=== PATIENT | female | born 1960 | race Caucasian/White ===

== ENCOUNTER 2019-04-12 09:16 | Day surgery (SDC) | payer OTHER ==
[~2019-04-12] VITALS: Ht 162.6 cm; Wt 80.7 kg
[2019-04-12] MEDS ORDERED: MIDAZOLAM 2 MG/2 ML VIAL ONE (10:47)
[2019-04-12] MEDS ORDERED: fentaNYL 0.05 MG/ML VIAL ONE (10:48)
[2019-04-12] MEDS ORDERED: LIDOCAINE 2% 100 MG/5 ML UJET TP ONE (10:48)
[2019-04-12] MEDS ORDERED: MIDAZOLAM 2 MG/2 ML VIAL IVP ONE (10:55)
[2019-04-12] MEDS ORDERED: fentaNYL 0.05 MG/ML VIAL IVP ONE (10:57)
== END 2019-04-12 12:00 | disposition home or self-care (01) ==
LOC: MDS 09:16 → MMU 09:16 → MDS 12:00
PROVIDERS: ATTEND Internal Medicine Gastroenterology
DX: Z12.11 Encounter for screening for malignant neoplasm of colon (principal); K57.30 Diverticulosis of large intestine without perforation or abscess without bleeding; I10 Essential (primary) hypertension; F17.210 Nicotine dependence, cigarettes, uncomplicated; Z86.010 Personal history of colon polyps; Z79.899 Other long term (current) drug therapy; Z98.890 Other specified postprocedural states
CPT/HCPCS: 45378; J2250; J3010; J7030

== ENCOUNTER 2020-05-08 10:06 | Day surgery (SDC) | payer OTHER, SELFPAY ==
[~2020-05-08] VITALS: Ht 162.6 cm; Wt 80.3 kg
[2020-05-08] MEDS ORDERED: MIDAZOLAM 5 MG/5 ML VIAL ONE ×2 (11:13→11:25)
[2020-05-08] MEDS ORDERED: fentaNYL citrate 0.05 MG/ML VIAL ONE (11:13)
[2020-05-08] MEDS ORDERED: LIDOCAINE 2% 100 MG/5 ML UJET TP ONE ×2 (11:13→13:05)
[2020-05-08] MEDS ORDERED: fentaNYL citrate 0.05 MG/ML VIAL IVP ONE (13:05)
[2020-05-08] MEDS ORDERED: MIDAZOLAM 2 MG/2 ML VIAL IVP ONE (13:05)
== END 2020-05-10 08:38 | disposition home or self-care (01) ==
LOC: MOR 10:06 → MMU 10:06 → MOR 05-10 08:38
PROVIDERS: ATTEND Internal Medicine Gastroenterology
DX: Z12.11 Encounter for screening for malignant neoplasm of colon (principal); D12.2 Benign neoplasm of ascending colon; I10 Essential (primary) hypertension; Z86.010 Personal history of colon polyps; F17.210 Nicotine dependence, cigarettes, uncomplicated; Z79.899 Other long term (current) drug therapy; Z20.828 Contact with and (suspected) exposure to other viral communicable diseases
CPT/HCPCS: 45380; 45385; 88305; J2250; J3010; U0003

== ENCOUNTER 2022-08-03 18:12 | Emergency (ER) | payer OTHER ==
[~2022-08-03] VITALS: Ht 162.6 cm; Wt 90.7 kg
[2022-08-03 18:57] VITALS: BP 151/87; PULSE 79; RESP 16; TEMP 98.6; O2SAT 100
[2022-08-03] MEDS ORDERED: MORPHINE SULFATE 4 MG/ML SYR IVP ONE (19:15)
[2022-08-03] MEDS ORDERED: NACL 0.9% 1,000 ML IV ONE (19:15)
[2022-08-03] MEDS ORDERED: ONDANSETRON 4 MG/2 ML VIAL IVP ONE (19:15)
--- NOTE | 2022-08-03 19:26 | NUR ---
PT AMBULATORY TO BED 2
[2022-08-03] MEDS ORDERED: ONDANSETRON 4 MG/2 ML VIAL ONE (20:21)
[2022-08-03] MEDS ORDERED: ceFAZolin 1,000 MG VIAL ONE (20:21)
[2022-08-03] MEDS ORDERED: MORPHINE SULFATE 4 MG/ML SYR ONE (20:22)
[2022-08-03 20:42] LABS: BASOPHILS % (AUTO) 0.4 % (0.0-2.0); EOSINOPHILS # (AUTO) 0.1 K/uL (0-0.4); EOSINOPHILS % (AUTO) 1.6 % (0.0-4.0); HEMATOCRIT 36.2 % (36-48); HEMOGLOBIN 12.3 g/dL (12.0-16.0); LYMPHOCYTES # (AUTO) 1.5 K/uL (2.5-16.5); LYMPHOCYTES % (AUTO) 21.4 % (20.5-51.1); MEAN CORPUSCULAR HEMOGLOBIN 30 pg (27-31); MEAN CORPUSCULAR HGB CONC 34 g/dL (33-37); MONOCYTES # (AUTO) 0.4 K/uL (0.8-1.0); MONOCYTES % (AUTO) 5.6 % (1.7-9.3); NEUTROPHILS # (AUTO) 5.1 K/uL (1.8-7.7); PLATELET COUNT (AUTO) 378 K/uL (140-450); RED BLOOD CELL COUNT(AUTO) 4.12 MIL/uL (4.20-5.40); RED CELL DISTRIBUTION WIDTH 12.7 % (11.6-13.7); WHITE BLOOD COUNT (AUTO) 7.2 K/uL (4.8-10.8)
--- NOTE | 2022-08-03 20:42 | NUR ---
Patient resting in bed, A/Ox4, chest rise and fall symmetrical, no s/s of distress, on monitor.
[2022-08-03 20:49] LABS: PROTHROMBIN TIME 10.4 secs (10.8-13.4)
[2022-08-03 20:57] LABS: ALBUMIN 3.7 g/dL (3.4-5.0); ANION GAP 14.3 (8-16); CARBON DIOXIDE 26.4 mmol/L (21-32); CREATININE 0.5 mg/dL (0.6-1.3); POTASSIUM 3.7 mmol/L (3.5-5.1); TOTAL BILIRUBIN 0.3 mg/dL (0.0-1.0)
[2022-08-03 21:12] LABS: APPEARANCE,URINE CLEAR (CLEAR); BILIRUBIN,URINE NEGATIVE (NEGATIVE); BLOOD, URINE NEGATIVE (NEGATIVE); COLOR,URINE YELLOW (YELLOW); LEUKOCYTE ESTERASE ,URINE NEGATIVE (NEGATIVE); NITRITE, URINE NEGATIVE (NEGATIVE); UGLUCOSE NEGATIVE (NEGATIVE)
--- NOTE | 2022-08-03 22:30 | NUR ---
Patient resting in bed, A/Ox4, chest rise and fall symmetrical, no s/s of distress, on monitor.
[2022-08-03] MEDS ORDERED: CEPH-588 PO (23:36)
[2022-08-04] MEDS ORDERED: BISA-213 RC (00:25)
[2022-08-04] MEDS ORDERED: PAX20 PO (00:25)
[2022-08-04] MEDS ORDERED: MAGN400S60 PO (00:25)
[2022-08-04] MEDS ORDERED: ONDA-188 PO (00:25)
[2022-08-04] MEDS ORDERED: DOCU-299 PO (00:25)
[2022-08-04] MEDS ORDERED: SENN-72 PO (00:25)
[2022-08-04] MEDS ORDERED: LOV40I SUBQ (00:25)
[2022-08-04] MEDS ORDERED: ACETAMINOPHEN EXTRA STRENGTH 500 MG TAB PO ONE (00:45)
--- NOTE | 2022-08-04 00:45 | NUR ---
Patient resting in bed, A/Ox4, chest rise and fall symmetrical, no c/o pain or s/s of distress, on monitor.
--- NOTE | 2022-08-04 01:00 | NUR ---
Patient resting in bed, A/Ox4, chest rise and fall symmetrical, no c/o pain or s/s of distress, on monitor. Dr. Jj at bedside speaking with patient.
[2022-08-04 01:15] VITALS: BP 138/75; PULSE 84; RESP 18; TEMP 98.3; O2SAT 99
== END 2022-08-04 01:15 | disposition home or self-care (01) ==
LOC: MED 18:12
DX: L03.312 Cellulitis of back [any part except buttock and flank] (principal); I10 Essential (primary) hypertension; Z98.890 Other specified postprocedural states
CPT/HCPCS: 36415; 71045; 72132; 80053; 81003; 83605; 85025; 85610; 85730; 87040; 87086; 96365; 96375; 99285; J0690; J2270; J2405; J7030; Q9967